=== PATIENT | female | born 1980 | race Caucasian/White ===

== ENCOUNTER → 2018-03-16 13:53 | Outpatient (CLI) | payer OTHER, SELFPAY ==
--- NOTE | 2018-03-16 13:55 | XR_ITS ---
XR shoulder LT min 2V HISTORY: ITS.REASON: shoulder pain ORDERING PHYSICIAN: Jessica Looney PATIENT AGE: 38 years Comparison: None FINDINGS: No fracture or dislocation. No lytic or blastic change. There is normal mineralization. The joint spaces are well-preserved. No significant degenerative/arthritic changes. No erosive changes evident. There is a small bone island in the humeral head and glenoid IMPRESSION: Negative, no acute finding
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
== END ==
PROVIDERS: PCP Emergency Medicine; Visit Provider Nurse Practitioner Family
DX: M54.2 Cervicalgia (principal); V89.2XXA Person injured in unspecified motor-vehicle accident, traffic, initial encounter
CPT/HCPCS: 72125; 73030

== ENCOUNTER 2018-04-25 11:00 | Outpatient (RCR) | payer OTHER, MEDICAID, SELFPAY ==
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
== END 2018-04-25 11:05 | disposition home or self-care (01) ==
LOC: PT 11:00
PROVIDERS: Visit Provider Nurse Practitioner Family
DX: M54.2 Cervicalgia (principal); G89.29 Other chronic pain
CPT/HCPCS: 97010; 97014; 97035; 97110; 97140; 97163; G0283

== ENCOUNTER 2019-09-10 08:46 | Emergency (ER) | payer MEDICAID, SELFPAY ==
[2019-09-10 08:47] VITALS: BP 143/105; PULSE 87; RESP 22; O2SAT 100; BMI 30.7
--- NOTE | 2019-09-10 08:48 | XR_ITS ---
PROCEDURE: XR CHEST 2V CLINICAL HISTORY: chest pain Left-sided chest pain with shortness of air COMPARISON: [facility] XR shoulder LT min 2V from 03/16/2018 FINDINGS: The cardiomediastinal silhouette and pulmonary vascularity are within normal limits. No lobar consolidation or collapse. There is a 4 mm nodular opacity in the left lower lung zone nonspecific. This is at the 5th interspace laterally. The anterior aspect of the left 4th rib is not well delineated. An underlying lytic lesion is a consideration. This did not have a similar appearance on a previous shoulder exam of 03/16/2018. No acute bony abnormalities. IMPRESSION: The possible lytic lesion of the left 2nd rib anteriorly and questionable 4 mm left lower lobe nodule. Consider chest CT with contrast for further evaluation Dictated by: Kory August MD 09/10/2019 09:21 Electronically signed by Kory August MD in [facility] 09/10/2019 09:21
--- NOTE | 2019-09-10 08:50 | ECG_ITS ---
APPROVED REPORT Exam: Resting ECG HR:74 bpm ECG Measurements Heart Rate 74 AXES KS 164 P 58 QRSd 84 QRS 39 QT 368 T 38 QTc 408 <Conclusion> Normal sinus rhythm Possible Left atrial enlargement Nonspecific ST-T wave abnormalities Abnormal ECG Electronically signed by : Jeb Mcintosh, 09/11/2019 14:40:27
--- NOTE | 2019-09-10 08:53 | HMH.EDCP ---
ED Disposition Clinical Impression: Nodule of left lung, Breast nodule Chest pain Qualifiers: Chest pain type: unspecified Qualified Code(s): R07.9 - Chest pain, unspecified Dyspnea Qualifiers: Dyspnea type: orthopnea Qualified Code(s): R06.01 - Orthopnea Disposition: Home, Self-Care Condition on Discharge: Good Instructions: DI for Atypical Chest Pain, DI for Shortness of Breath Additional Instructions: Follow-up with your primary care provider in 2 to 3 days concerning the lung nodule and breast nodule. Return to the emergency department if you develop any worsening or recurrence of symptoms. - Critical Care Critical Care Time: No Attestation: On , the high probability of a clinically significant, sudden or life threatening deterioration of the following system(s) required my full and direct attention, intervention and personal management. The time I documented below is in addition to time spent performing reported procedures but includes the following listed in this critical care notation. Medical Decision Making - Medical Records Medical records reviewed: Yes: I reviewed the patient's medical records. - Filiberto Inquiry Pt receiving controlled substance: No Vital Signs: 09/10/19 08:47 09/10/19 09:13 09/10/19 10:17 Temperature Temperature Source Pulse Rate [Radial] 87 77 77 Respiratory Rate 22 24 22 Blood Pressure [Right Arm] 143/105 H 124/89 133/95 H Blood Pressure Mean [Right Arm] 117 100 107 Blood Pressure Source [Right Arm] Automatic Cuff Automatic Cuff Automatic Cuff Blood Pressure Position [Right Arm] Sitting Supine Supine 02 Sat by Pulse Oximetry 100 98 98 Oxygen Delivery Method Room Air Room Air Room Air 09/10/19 10:57 Temperature 98.6 F Temperature Source Oral Pulse Rate [Radial] 77 Respiratory Rate 20 Blood Pressure [Right Arm] 123/75 Blood Pressure Mean [Right Arm] 91 Blood Pressure Source [Right Arm] Automatic Cuff Blood Pressure Position [Right Arm] Supine 02 Sat by Pulse Oximetry 99 Oxygen Delivery Method Room Air - Lab Data Lab Results 09/10/19 08:55: WBC 15.8 H, RBC 4.57, Hgb 13.2, Hct 41.4, MCV 90.5, MCH 28.9, MCHC 32.0, RDW 12.7, Plt Count 434 H, MPV 7.4, Neut % (Auto) 77.6, Lymph % (Auto) 15.7, Forest % (Auto) 3.5, Eos % (Auto) 2.8, Baso % (Auto) 0.4, Neut # (Auto) 12.3 H, Lymph # (Auto) 2.5, Forest # (Auto) 0.6, Eos # (Auto) 0.5 H, Baso # (Auto) 0.1, Total Counted 100, Neutrophils % (Manual) 79 H, Lymphocytes % (Manual) 17, Monocytes % (Manual) 3, Eosinophils % (Manual) 1, Platelet Estimate Normal, RBC Morphology Normal 09/10/19 08:55: Sodium 137, Potassium 4.0, Chloride 104, Carbon Dioxide 25, Anion Gap 12.0, BUN 11, Creatinine 0.70, Estimated Creat Clear 172, Estimated GFR 94, Est GFR ( Amer) 113, Glucose 107 H, Calcium 9.5, Troponin I < 0.01 Result diagrams: 09/10/19 08:55 09/10/19 08:55 Orders (Tests/Meds): ED MEDICATIONS Discontinued Medications Generic Name Dose Route Start Last Admin Trade Name Tylerq PRN Reason Stop Dose Admin Ioversol 70 ml 09/10/19 10:07 09/10/19 10:08 Rad-Optiray 350 100ml Vial IV 09/10/19 10:08 70 ml ONCE ONE Administration Protocol Sodium Chloride 10 ml 09/10/19 10:07 09/10/19 10:08 Rad-Saline Flush 10ml Syringe IV 09/10/19 10:08 10 ml ONCE ONE Administration Sodium Chloride 50 ml 09/10/19 10:07 09/10/19 10:08 Rad-Ns 50ml Vial IV 09/10/19 10:08 50 ml ONCE ONE Administration ORDERS Category Date Time Status Troponin I Q3H Lab 09/10/19 12:00 Ordered Troponin I Q3H Lab 09/10/19 15:00 Ordered - Radiology Data #1 Image(s): Chest Image Reviewed: Yes I reviewed the patient's radiology results Left lung nodule and possible lytic lesion left second anterior rib - CT Data CT Scan: Chest Time Received: 11:[address] Reviewed: Yes: I have reviewed the patient's CT results Findings Narrative: No pulmonary embolus, calcified left lung nodule, left breast nodule, mul
--- NOTE | 2019-09-10 09:01 | PC.NURSE ---
rad her to get pt
--- NOTE | 2019-09-10 09:05 | PC.NURSE ---
pt back from rad
[2019-09-10 09:06] LABS: Chloride 104 mmol/L (98-107); Sodium 137 mmol/L (136-145)
[2019-09-10 09:09] LABS: Basophils # 0.1 K/mm3 (0-0.2); Basophils % 0.4 % (0.1-2.0); Blood Urea Nitrogen 11 mg/dl (7-17); Creatinine Clearance Estimated 172 mL/min (50-200); Eosinophils # 0.5 K/mm3 (0.0-0.4); Eosinophils % 2.8 % (0.1-12.0); Estimated Glomerular Filt Rate 94 ml/min (>60); GFR (African American) 113 ML/MIN (>60); Hematocrit 41.4 % (37.0-47.0); Hemoglobin 13.2 g/dL (12.2-16.2); Lymphocytes # 2.5 K/mm3 (0.7-4.5); Lymphocytes % 15.7 % (10-50); Mean Corpuscular Hemoglobin 28.9 pg (27.0-31.2); Mean Corpuscular Volume 90.5 fl (81-99); Mean Platelet Volume 7.4 fl (7.4-10.4); Monocytes # 0.6 K/mm3 (0.1-1.0); Monocytes % 3.5 % (1.7-9.3); Neutrophils # 12.3 K/mm3 (1.8-7.8); Neutrophils % 77.6 % (37.0-80.0); Platelet Count 434 K/mm3 (142-424); Red Blood Count 4.57 M/mm3 (4.20-5.40); Red Cell Distribution Width 12.7 % (11.5-17.5); White Blood Count 15.8 K/mm3 (4.8-10.8)
[2019-09-10 09:10] LABS: Calcium 9.5 mg/dl (8.4-10.2); Carbon Dioxide 25 mmol/L (22.0-30.0); Glucose 107 mg/dl (74-100)
[2019-09-10 09:12] LABS: MANUAL DIFFERENTIAL MANUAL DIFFERENTIAL (MANUAL DIFF)
[2019-09-10 09:13] VITALS: BP 124/89; PULSE 77; RESP 24; O2SAT 98
[2019-09-10 09:22] LABS: Troponin I < 0.01 ng/ml (0.00-0.034)
[2019-09-10 09:27] LABS: Eosinophils % 1 % (0-3); Lymphocytes % 17 % (10-50); Monocytes % 3 % (2-9); Neutrophils % 79 % (42-76); Total Cells Counted 100
--- NOTE | 2019-09-10 09:27 | CT_ITS ---
PROCEDURE: CT ANGIO CHEST CLINCIAL INDICATION: abnormal cxr Left-sided chest pain, shortness of air, abnormal chest x-ray COMPARISON: XR CHEST 2V from 09/10/2019 TECHNIQUE: IV Contrast: 70ML OPTIRAY 350 Axial images obtained with sagittal and coronal reformats. All CT scans at the facility use one or more dose reduction, viz: automated exposure control, ma/kV adjustment per patient size (including targeted exams where dose is matched to indication, i.e. head), or iterative reconstruction technique. FINDINGS: HEART AND MEDIASTINAL STRUCTURES: No evidence of aortic aneurysm or dissection. There are calcified nodes in the mediastinum. There is no evidence of pulmonary embolus. There is moderate thickening of the pericardium measuring up to 12 mm in thickness. LUNGS AND PLEURAL SPACES: Extensive centrilobular emphysema with evidence of old granulomatous disease. There are scattered areas of scarring. There is a calcified granuloma in the left lower lobe. This corresponds to the nodular lesion noted on the radiograph. At this area there are at least 3 other small subpleural nodular opacities which range from 3-4 mm. No suspicious pulmonary nodules are evident. No lobar consolidation or collapse. No central obstructing lesion. BONY STRUCTURES: No bony destructive process evident. There was questionable lytic lesion of the distal aspect of the left 2nd rib. However, CT did not demonstrate any lytic lesion. There is some minimal thinning of the 2nd rib distally which is felt to be a chronic finding. UPPER ABDOMEN: Unremarkable. ADDITIONAL FINDINGS: There are scattered small nodes in the axilla. There is a nonspecific faint nodular opacity involving the medial aspect of the left breast on image number 30 series 3 and may be due to fibroglandular tissue. Nonemergent mammogram may confirm. IMPRESSION: 1. Nodular density in the left lower lobe corresponds to a calcified granuloma. There is evidence of old granulomatous disease. No lytic rib lesions are evident. There is some thinning of the left 2nd rib anteriorly which is felt to be a variation of normal. 2. Extensive centrilobular emphysema. 3. Concentric thickening of the pericardium measuring up to 12 mm consistent with pericardial effusion. 4. Possible small left breast nodule Dictated by: Kory August MD 09/10/2019 10:39 Electronically signed by Kory August MD in [facility] 09/10/2019 10:39
[2019-09-10 09:28] LABS: Platelet Estimate Normal; RBC Morphology Normal
--- NOTE | 2019-09-10 09:55 | PC.NURSE ---
rad here to get pt for ct
--- NOTE | 2019-09-10 10:11 | PC.NURSE ---
pt back from rad
[2019-09-10 10:17] VITALS: BP 133/95; PULSE 77; RESP 22; O2SAT 98
[2019-09-10 10:57] VITALS: BP 123/75; PULSE 77; RESP 20; TEMP 37; O2SAT 99
[2019-09-10 11:16] VITALS: BP 123/75; PULSE 77; RESP 20; TEMP 37; O2SAT 99
== END 2019-09-10 11:17 | disposition home or self-care (01) ==
PROVIDERS: Emergency Provider Emergency Medicine
DX: R91.1 Solitary pulmonary nodule (principal); R07.9 Chest pain, unspecified; J44.9 Chronic obstructive pulmonary disease, unspecified; K21.9 Gastro-esophageal reflux disease without esophagitis; Z95.0 Presence of cardiac pacemaker; G45.8 Other transient cerebral ischemic attacks and related syndromes; F17.210 Nicotine dependence, cigarettes, uncomplicated
CPT/HCPCS: 71046; 71275; 80048; 84484; 85007; 85025; 93005; 99283; Q9967

== ENCOUNTER 2021-08-09 08:45 | Emergency (ER) | payer MEDICAID, SELFPAY ==
[2021-08-09 08:46] VITALS: BP 138/83; PULSE 88; RESP 16; TEMP 37.1; O2SAT 100; BMI 30.1
--- NOTE | 2021-08-09 09:38 | HMH.EDGENADL ---
ED Disposition Clinical Impression: Cutaneous abscess Qualifiers: Site of cutaneous abscess: buttock Qualified Code(s): L02.31 - Cutaneous abscess of buttock Disposition: Home, Self-Care Condition on Discharge: Good Instructions: DI for Skin Abscess Additional Instructions: Bactrim as well prescribed. [place] as needed for pain. Follow-up with surgeon for evaluation for possible cyst after packing is removed and area has healed. Additional instructions for ABSCESS: Day one and two: Remove the bandage and shower the area, leaving the packing in place. Gently blot dry. Apply a bandage. Day three: Follow-up with primary care physician, clinic, or Urgent [facility] for packing removal and culture results. Return to the emergency department if increasing pain, swelling, redness, red streaks or fever greater than 101 degrees. Additional instructions for CONTROLLED SUBSTANCES: You have been prescribed a medication that is a controlled substance. Controlled substances include pain medications known as opiates and sedative nerve medications known as benzodiazepines. Tramadol, fioricet, and gabapentin are also controlled substances. Some common opiates include: Codeine (such as Tylenol #3) Hydrocodone (Vicodin, Lortab, Lorcet, Winona) Oxycodone (Percocet, Percodan, Oxycodone, Oxy IR) Some common benzodiazepines include: Diazepam (Valium) Lorazepam (Ativan) Alprazolam (Xanax) Clonazepam (Klonopin) Oxazepam (Serax) All of these controlled substances are highly addictive and frequently abused. Misuse can and frequently does lead to addiction as well as overdose and . Medication should be stored in a locked cabinet or other secure storage unit. Do not store the medication in a motor vehicle. Short term supplies, 3 days or less, are prescribed because of the highly addictive nature of the medication. Any of the controlled substance medication NOT taken should be disposed of properly and NOT SAVED. The recommended method of disposing of unused medications is: Place the medicines in a sealable plastic bag. If the medicine is a solid, crush it or add water to dissolve it. Add something undesirable (cat litter, coffee grounds, etc.) Dispose of sealed bag in household trash Do not flush or pour unused medicines down a sink or drain. Controlled substances should not be shared, given away or sold. Because of the addictive nature and frequent abuse, these medications are sometimes stolen. These medications should be kept in a safe place where they cannot be stolen. Do not keep them in your car or purse. Lost or stolen prescriptions for controlled substances WILL NOT BE REFILLED in this emergency department, regardless of whether a police report was filed. Prescriptions: Hydrocod/Acet 5/325 mg [[place] 5/325mg tablet] 1 tab PO Q6HP PRN #10 tab PRN Reason: Pain Transmission Status: Sent to [facility] Sulfamethoxazole/Trimethoprim [Bactrim DS tablet] 1 each PO BID #20 tab Transmission Status: Sent to [facility] Referrals: Jessica Looney APRN [Primary Care Provider] - Seth Valera MD [Staff Physician] - - Critical Care Critical Care Time: No Attestation: On 08/09/21, the high probability of a clinically significant, sudden or life threatening deterioration of the following system(s) required my full and direct attention, intervention and personal management. The time I documented below is in addition to time spent performing reported procedures but includes the following listed in this critical care notation. Medical Decision Making - Filiberto Inquiry Pt receiving controlled substance: Yes Filiberto was queried for this patient: Yes Risks and benefits of using a controlled substance: were discussed with pt by me Vital Signs: 08/09/21 08:46 Temperature 98.8 F Temperature Source Oral Pulse Rate [Right Radial] 88 Respiratory Rate 16 Blood Pressure [Right Arm] 138/83
[2021-08-09 10:33] VITALS: BP 131/79; PULSE 80; RESP 16; TEMP 36.6; O2SAT 100
== END 2021-08-09 10:35 | disposition home or self-care (01) ==
PROVIDERS: Emergency Provider Emergency Medicine; PCP Nurse Practitioner Family
DX: L02.31 Cutaneous abscess of buttock (principal); F17.210 Nicotine dependence, cigarettes, uncomplicated
CPT/HCPCS: 10060; 87070; 87205; 99282

== ENCOUNTER 2021-11-12 10:13 | Emergency (ER) | payer MEDICAID, SELFPAY ==
[2021-11-12 10:15] VITALS: BP 135/86; PULSE 87; RESP 18; TEMP 36.9; O2SAT 99; BMI 30.4
[2021-11-12 10:18] VITALS: BP 135/86; PULSE 78; O2SAT 98
--- NOTE | 2021-11-12 10:37 | PC.NURSE ---
LIZETH ESTRELLA at
--- NOTE | 2021-11-12 10:41 | HMH.EDGENADL ---
ED Disposition Clinical Impression: Abscess of skin or subcutaneous tissue Qualifiers: Site of cutaneous abscess: buttock Qualified Code(s): L02.31 - Cutaneous abscess of buttock Disposition: Home, Self-Care Condition on Discharge: Good Instructions: DI for Skin Abscess Additional Instructions: Follow-up with general surgery, Dr. Figueroa, call for appointment. Additional instructions for ABSCESS: Day one and two: Remove the bandage and shower the area, leaving the packing in place. Gently blot dry. Apply a bandage. Day three: Follow-up with primary care physician, clinic, or Ur[facility] for packing removal and culture results. Return to the emergency department if increasing pain, swelling, redness, red streaks or fever greater than 101 degrees. Prescriptions: Hydrocod/Acet 5/325 mg [[place] 5/325mg tablet] 1 tab PO Q6HP PRN #10 tab PRN Reason: Pain Transmission Status: Sent to [facility] #[id number] clindamycin HCL [Clindamycin HCl] 300 mg PO QID #40 cap Transmission Status: Pending to [facility] #[id number] Referrals: ProviderRiver MD [Primary Care Provider] - Rm Figueroa MD [Staff Physician] - - Critical Care Critical Care Time: No Attestation: On 11/12/21, the high probability of a clinically significant, sudden or life threatening deterioration of the following system(s) required my full and direct attention, intervention and personal management. The time I documented below is in addition to time spent performing reported procedures but includes the following listed in this critical care notation. Medical Decision Making - Medical Records Medical records reviewed: Yes: I reviewed the patient's medical records. MR Comment: Reviewed emergency department note from 08/09/2021. Seen by me for an abscess on her left buttock. Incision and drainage and packing performed. Culture was sent and returned negative. - Filiberto Inquiry Pt receiving controlled substance: Yes Filiberto was queried for this patient: Yes Risks and benefits of using a controlled substance: were discussed with pt by me Vital Signs: 11/12/21 10:15 11/12/21 10:18 Temperature 98.5 F Temperature Source Oral Pulse Rate 78 Pulse Rate [Right Radial] 87 Respiratory Rate 18 Blood Pressure 135/86 Blood Pressure [Right Arm] 135/86 Blood Pressure Mean [Right Arm] 102 Blood Pressure Source Automatic Cuff Blood Pressure Source [Right Arm] Automatic Cuff Blood Pressure Position Sitting Blood Pressure Position [Right Arm] Sitting 02 Sat by Pulse Oximetry 99 98 Oxygen Delivery Method Room Air Room Air Orders (Tests/Meds): ORDERS Category Date Time Status Wound Culture and Gram Stain Stat Micro 11/12/21 11:35 Ordered General Adult HPI - General Chief complaint: Skin/Abscess/Foreign Body Stated complaint: possible blister or boil Time Seen by Provider: 11/12/21 10:30 Mode of Arrival: Ambulatory Limitations: No Limitations Description of Symptoms (Recalled from ER Triage Doc. by RN): Pt c/o boil in the crack of her buttock x3 days. Advises of a hx of same thing in July. C/O pain at site. - History of Present Illness HPI narrative: 3-day history of abscess on her left buttock. Denies fever. This is recurrent. She this is now the fourth recurrence in the past year. No prior abscess prior to 1 year ago. Seen in this emergency department in July for the same thing. She states she did not follow-up with anybody after that visit. Packing fell out on its own. She does not have a primary care provider. - Related Data Previous Rx's Medication Instructions Recorded Hydrocod/Acet 5/325 mg [[place] 1 tab PO Q6HP PRN #10 tab 08/09/21 5/325mg tablet] Sulfamethoxazole/Trimethoprim 1 each PO BID #20 tab 08/09/21 [Bactrim DS tablet] Hydrocod/Acet 5/325 mg [[place] 1 tab PO Q6HP PRN #10 tab 11/12/21 5/325mg tablet] clindamycin HCL [Clindamycin HCl] 300 mg PO QID #40
--- NOTE | 2021-11-12 11:15 | PC.NURSE ---
at to perform I&D at this time
[2021-11-12 11:46] VITALS: BP 132/86; PULSE 84; RESP 18; O2SAT 98
[2021-11-12 11:50] VITALS: BP 132/86; PULSE 84; RESP 18; TEMP 36.9; O2SAT 99
== END 2021-11-12 11:50 | disposition home or self-care (01) ==
PROVIDERS: Emergency Provider Emergency Medicine
DX: L02.31 Cutaneous abscess of buttock (principal)
CPT/HCPCS: 10060; 87070; 87205; 99282